=== PATIENT | male | born 1950 | race Caucasian/White ===

== ENCOUNTER → 2024-01-02 08:15 | Outpatient (REF) | payer MEDICARE, OTHER, SELFPAY | LOC: EMG 08:15 | PROVIDERS: ATTENDING PHYSICIAN Psychiatry & Neurology Neurology; FAMILY PHYSICIAN Internal Medicine | DX: R20.0 Anesthesia of skin (principal); G62.9 Polyneuropathy, unspecified; R20.9 Unspecified disturbances of skin sensation | CPT/HCPCS: 95886; 95911 ==